=== PATIENT | female | born 1980 | race Caucasian/White ===

== ENCOUNTER 2018-11-25 17:49 | Emergency (ER) | payer OTHER ==
[2018-11-25 18:03] VITALS: BP 119/70; PULSE 68; TEMP 97.9; BMI 31.5
--- NOTE | 2018-11-25 18:24 | PDOC ---
History of Present Illness - General Chief Complaint: Shortness of Breath Stated Complaint: SHORTNESS OF BREATH - History of Present Illness Initial Comments: The pt is a 38F w/ no reported PMH who presents for evaluation of 4 days of shortness of breath that is non-exertional. Pt reports symptoms started Sunday, improved Sunday, almost resolved Sunday, and worsened today. Pt denies associated fevers, chest pain, congestion, cough, ABBOTT, vision changes, dizziness , N/V, or any exacerbating or alleviating factors. Denies history of asthma, smoking, or previous episodes of this symptom. PMH: Denies PSH: Denies Meds: Denies Allergies: Denies SH: Denies x3 H&P conducted w/ impregnator operator Kervin [id number] 11/25/18 18:48 Past History - Past Medical History Allergies/Adverse Reactions: Allergies Allergy/AdvReac Type Severity Reaction Status Date / Time No Known Allergies Allergy Verified 11/25/18 18:04 Home Medications: Ambulatory Orders 02/16/12 Acetaminophen [Tylenol .Regular Strength -] 650 mg PO Q3H PRN #1 tablet Ibuprofen [Motrin -] 600 mg PO Q4H PRN #1 tablet 02/18/12 Asthma: No Cancer: No Cardiac Disorders: No COPD: No Diabetes: No HTN: No Seizures: No Thyroid Disease: No - Suicide/Smoking/Psychosocial Hx Smoking History: Never smoked Have you smoked in the past 12 months: No Hx Alcohol Use: No Drug/Substance Use Hx: No Hx Substance Use Treatment: No Review of Systems - Review of Systems Able to Perform ROS?: Yes Comments:: GENERAL/CONSTITUTIONAL: No fever or chills. No weakness HEAD, EYES, EARS, NOSE AND THROAT: No change in vision or hearing. No sore throat CARDIOVASCULAR: No chest pain RESPIRATORY: Denies cough, hemoptysis GASTROINTESTINAL: No nausea, vomiting, diarrhea or constipation GENITOURINARY: No dysuria, frequency, or change in urination MUSCULOSKELETAL: No joint or muscle swelling or pain. No neck or back pain SKIN: No rash NEUROLOGIC: No headache, vertigo, loss of consciousness, or change in strength/ sensation ENDOCRINE: No increased thirst. No abnormal weight change HEMATOLOGIC/LYMPHATIC: No anemia, easy bleeding, or history of blood clots ALLERGIC/IMMUNOLOGIC: No hives or skin allergy 11/25/18 18:54 Is the patient limited Stateless proficient: Yes *Physical Exam - Vital Signs Last Vital Signs Temp Pulse Resp BP Pulse Ox 97.9 F 68 16 119/70 100 11/25/18 17:59 11/25/18 17:59 11/25/18 17:59 11/25/18 17:59 11/25/18 17:59 - Physical Exam Comments: GENERAL: Awake, alert, and oriented to person/place/time, in no acute distress HEAD: No signs of trauma, normocephalic, atraumatic EYES: PERRLA, EOMI, sclera anicteric, conjunctiva clear ENT: Hearing grossly normal, nares patent, oropharynx clear without exudates. No uvular deviation. Moist mucosa LUNGS: No distress, speaks full sentences, clear to auscultation bilaterally HEART: Regular rate and rhythm, normal S1 and S2, no murmurs appreciated, peripheral pulses normal and equal bilaterally ABDOMEN: Soft, nontender, normoactive bowel sounds. No guarding, no rebound. No masses EXTREMITIES: Normal inspection, Normal range of motion, no edema. No clubbing or cyanosis NEUROLOGICAL: Cranial nerves II through XII grossly intact. Normal speech, no focal sensorimotor deficits SKIN: Warm, Dry 11/25/18 18:55 ED Treatment Course - LABORATORY CBC & Chemistry Diagram: 11/25/18 19:40 11/25/18 19:40 Medical Decision Making - Medical Decision Making The pt is a 38F w/ no reported PMH who presents for evaluation of 4 days of non- exertional shortness of breath ED Course CMP, CBC, Trop I CXR ECG 11/25/18 19:08 No leukocytosis No anemia 11/25/18 20:12 D-dimer neg CXR w/o acute PNA, PNX 11/25/18 20:[address] LFTs wnl Pt breathing comfortably on room air Plan for D/C w/ PCP f/u Discharge instructions and return precautions given Pt in agreement and verbalized understanding Dispo: home 11/25/18 20:52 *DC/Admit/Observation/Transfer Diagnosis at time of Disposition: Shortness of breath - Discharge Dispostion Disposition: HOME Condition at time of disposition: Stable Decision to Admit order: No - Referrals Referrals: Di Yusuf MD [Primary Care Provider] - Guille Moy MD, MD [Staff Physician] - - Patient Instructions Printed Discharge Instructions: DI for Shortness of Breath Additional Instructions: You were seen in the Emergency Department for evaluation of shortness of breath. Your labs, ECG, and x-ray were unremarkable. Review the handout provided at discharge. Follow up with your primary care provider within a week. Return to the Emergency Department if you develop fevers/chills, vision changes , chest pain, nausea/vomiting, worsening symptoms, or any new/concerning symptoms. Usted fue atendido en el Departamento de Emergencias para evaluar la falta de aliento. Nisha laboratorios, ECG y karlie X no tuvieron nada especial. Revise el folleto provisto al momento del oscar. Jack un seguimiento con nash proveedor de atencin primaria dentro de polo semana. Regrese al Departamento de Emergencias si desarrolla fiebre / escalofros, cambios en la visin, dolor en el pecho, nuseas / vmitos, empeoramiento de los sntomas o cualquier sntoma nuevo o relacionado. Print Language: LEBANESE - Post Discharge Activity
[2018-11-25 19:59] LABS: HEMATOCRIT 38.8 % (32.4-45.2); HEMOGLOBIN 13.8 GM/dL (10.7-15.3); MCH 29.9 pg (25.7-33.7); MCHC 35.5 g/dl (32.0-36.0); MEAN CELL VOLUME 84.3 fl (80-96); MEAN PLT VOLUME 7.2 fl (7.5-11.1); PLATELET COUNT 273 K/MM3 (134-434); RBC 4.61 M/mm3 (3.60-5.2); RDW 12.7 % (11.6-15.6); WHITE BLOOD COUNT 9.5 K/mm3 (4.0-10.0)
[2018-11-25 20:24] LABS: ALBUMIN 4.1 g/dl (3.4-5.0); ALK PHOS 83 U/L (45-117); ANION GAP 8 MMOL/L (8-16); BILIRUBIN,TOTAL 0.3 mg/dL (0.2-1); BLOOD UREA NITROGEN 11 mg/dL (7-18); CALCIUM 8.9 mg/dL (8.5-10.1); CHLORIDE 110 mmol/L (98-107); CO2 23 mmol/L (21-32); CREATININE 0.6 mg/dL (0.55-1.3); GLUCOSE,RANDOM 101 mg/dL (74-106); POTASSIUM 3.5 mmol/L (3.5-5.1); SGOT/AST 17 U/L (15-37); SGPT/ALT 17 U/L (13-61); SODIUM 141 mmol/L (136-145); TOT PROT 7.2 g/dl (6.4-8.2)
--- NOTE | 2018-11-25 20:58 | PDOC ---
Attending Attestation - Resident Resident Name: Joni Ambriz - ED Attending Attestation I have performed the following: I have examined & evaluated the patient, The case was reviewed & discussed with the resident, I agree w/resident's findings & plan, Exceptions are as noted - HPI HPI: 11/25/18 21:00 this 38 yo female feels like she can not get a good breath when she takes a big breath she denies any fever,chills,cough,nausea,vomiting - Medical Decision Making 11/25/18 20:58 Patient is has stable vital signs during her visit. Chest x-ray did not show any acute pulmonary disease. No effusions. No infiltrates. No pneumothorax. D-dimer is negative. If 389 Troponin is negative. Chemistries are unremarkable. She has no significant anemia or leukocytosis Impression atypical chest pain./pleuretic chest pain Discharge home with follow-up with primary care physician <Yvrose Ford - Last Filed: 11/25/18 21:03> - HPI HPI: The patient is a 38 year old female, with no significant past medical history, who presents to the emergency department with, 4 days of shortness of breath. She denies recent chest pain or palpitations. She denies recent fevers, chills, headache or dizziness. She denies recent nausea, vomit, diarrhea or constipation. She denies recent dysuria, frequency, urgency or hematuria. Allergies: NKDA Primary Care Physician: Dr. Yusuf - Physicial Exam PE: 11/25/18 21:04 GENERAL: Well-appearing, well-nourished. No apparent distress. HEENT: Normocephalic, atraumatic. PERRL, EOM intact. CARDIOVASCULAR: Normal S1, S2. Regular rate and rhythm. PULMONARY: Clear to auscultation bilaterally. ABDOMEN: Soft, non-distended, non-tender. EXTREMITIES: Normal ROM in all four extremities. No gross deformities. SKIN: Warm, dry. No rash NEUROLOGICAL: No focal neurological deficits. <Krysta Clark - Last Filed: 11/25/18 21:04> Attestations - Attestations 11/25/18 21:04 Documentation prepared by Krysta Clark, acting as medical records auditor for Yvrose Ford MD. <Krysta Clark - Last Filed: 11/25/18 21:04>
--- NOTE | 2018-11-26 09:21 | EKG ---
Test Reason : Blood Pressure : / mmHG Vent. Rate : 066 BPM Atrial Rate : 066 BPM P-R Int : 154 ms QRS Dur : 088 ms QT Int : 418 ms P-R-T Axes : 065 057 046 degrees QTc Int : 438 ms NORMAL SINUS RHYTHM NORMAL ECG NO PREVIOUS ECGS AVAILABLE Confirmed by YAKOV SELBY MD ([id number]) on 11/26/2018 9:20:30 AM Referred By: Confirmed By:YAKOV SELBY MD
== END 2018-11-25 21:24 | disposition home or self-care (01) ==
LOC: JER 17:49
DX: R06.02 Shortness of breath (principal)
CPT/HCPCS: 36415; 71046-TC-FY; 80053; 84484; 84703; 85027; 85379; 93005; 93010; 99282-25